=== PATIENT | male | born 1985 | race Caucasian/White ===

== ENCOUNTER 2017-03-07 05:23 | Inpatient (IN) | payer OTHER ==
[~2017-03-07 05:23] MED LIST: AUGMENTIN 875-1 EAC2 PO; HYDROCODON-ACE1 EA16 PO; MULTIVITAMINS1 EAC6 PO; NO MEDS; SUDAFED30 M2 PO; [UNRECOGNIZED DRUG - OTHER] PO
[2017-03-07 06:13] LABS: BASO % 0.3 % (0-2); EOS % 7.7 % (0-7); EOSINOPHIL ABSOLUTE COUNT 0.5 tho/cmm (0.0-0.7); HCT-HEMATOCRIT 45.7 % (36.0-53.5); HGB-HEMOGLOBIN 15.7 gm/dl (13.5-17.0); IMMATURE GRANULOCYTES ABSOLUTE 0.02 tho/cmm (0-0.03); IMMATURE GRANULOCYTES PERCENT 0.3 % (0-0.3); LYMPH % 43.4 % (20-45); LYMPH ABSOLUTE COUNT 2.6 tho/cmm (0.8-4.5); MCH (MEAN CORPUSCULAR HGB) 30.5 pg (28.0-32.0); MCHC MEAN CORPUSCULAR HGB CONC 34.4 % (32.0-36.0); MCV (MEAN CELL VOLUME) 88.7 fl (82.0-96.0); MEAN PLATELET VOLUME 9.6 cmc (9.4-12.4); MONOCYTE ABSOLUTE COUNT 0.5 tho/cmm (0.0-1.2); NEUTROPHIL ABSOLUTE COUNT 2.3 tho/cmm (1.6-8.0); NEUTROPHIL-AUTOMATED 2.3 tho/cmm (1.6-8.0); NEUTROPHILS % 39.3 % (40-80); PLATELET COUNT 161 tho/cmm (150-450); RED BLOOD COUNT 5.15 mil/cmm (4.40-5.70); RED CELL DISTRIBUTION WIDTH 12.4 % (12.4-16.4); WHITE BLOOD COUNT 5.9 tho/cmm (4.0-10.0)
[2017-03-08] MEDS ORDERED: AUGMENTIN 875-1 EAC2 PO (14:33)
[2017-03-08] MEDS ORDERED: LORCET 5-325 M1 EAC1 PO (14:34)
[2017-03-08] MEDS ORDERED: SUDAFED30 M2 PO (14:35)
[2017-03-08] MEDS ORDERED: IBUPROFEN600 M1 PO (14:46)
[2017-03-08] MEDS ORDERED: OCEAN104 ML (14:52)
[2017-03-08] MEDS ORDERED: AFRIN30 ML (14:54)
== END 2017-03-08 15:45 | DRG 132 ==
LOC: SHSB 05:23 → ORE 07:18 → PACU 09:05 → PCUB 11:25
PROVIDERS: ADMIT Dentist Oral and Maxillofacial Surgery
PROC: 0NSR04Z Reposition Maxilla with Internal Fixation Device, Open Approach (ICD-10-PCS; principal; 2017-03-07)
PROC: 0NSS04Z (ICD-10-PCS; 2017-03-07)
DX: M26.02 Maxillary hypoplasia (principal)
CPT/HCPCS: C1713; J0690; J1040; J1100; J1170; J1885; J3010; J3480